=== PATIENT | female | born 1985 | race Two or more races ===

== ENCOUNTER 2021-04-08 10:42 | Day surgery (SDC) | payer MEDICAID ==
[~2021-04-08] VITALS: Ht 165.1 cm; Wt 76.7 kg
[2021-04-08 11:32] LABS: MICROSCOPIC NOT IND
[2021-04-08 11:36] LABS: ALANINE AMINOTRANSFERASE 26 U/L (12-78); ALBUMIN 3.6 g/dL (3.4-5.0); CALCIUM 8.1 mg/dL (8.5-10.1); CHLORIDE 110 mmol/L (98-107); CREATININE 0.61 mg/dL (0.55-1.02)
[2021-04-08 11:40] LABS: ALKALINE PHOSPHATASE 68 U/L (45-117); BILIRUBIN,TOTAL 0.8 mg/dL (0.2-1.0); TOTAL PROTEIN 7.2 g/dL (6.4-8.2)
[2021-04-08 11:44] LABS: ANION GAP 4 mmol/L (5-15)
[2021-04-08 11:45] LABS: BASOPHILS % (AUTO) 1 % (0-1); EOSINOPHILS % (AUTO) 1 % (1-7); LYMPHOCYTES % (AUTO) 43 % (22-44); MEAN CORPUSCULAR HEMOGLOBIN 30.2 pg (27.0-34.8); MEAN CORPUSCULAR HGB CONC 34.7 g/dL (32.4-35.8); MEAN PLATELET VOLUME 9.4 fL (7.4-10.4); MONOCYTES % (AUTO) 5 % (2-9); NEUTROPHILS % (AUTO) 51 % (42-75); PLATELET COUNT 257 x10^3/uL (130-400); RED BLOOD COUNT 4.64 x10^6/uL (3.82-5.3); RED CELL DISTRIBUTION WIDTH 13.2 % (9.6-15.2)
[2021-04-08] MEDS: SODIUM CHLORIDE FLUSH 10ML SYR IVF ONE (13:00)
[2021-04-08] MEDS ORDERED: SODIUM CHLORIDE FLUSH 10ML SYR IVF PRN (13:30)
[2021-04-08] MEDS: CEFOTETAN PMX 1GM/50ML 50 ML IVPB ONE (13:39)
[2021-04-08] MEDS: SODIUM CHLORIDE 0.9% 1,000 ML IV ONE (13:42)
[2021-04-08] MEDS ORDERED: BUPIVACAINE/PF 0.5% ONE (14:03)
[2021-04-08] MEDS ORDERED: EPINEPHRINE 1 MG/ML, 1ML ONE (14:03)
[2021-04-08] MEDS: BUPIVACAINE/PF-EPI 0.5% 1:200K INFIL ONE (14:35)
[2021-04-08] MEDS ORDERED: HYDR-2214 PO (14:53)
[2021-04-08] MEDS ORDERED: KETOROLAC 30 MG/1 ML IV PRN (15:00)
[2021-04-08] MEDS ORDERED: hydrALAzine 20 MG/ML, 1ML IV PRN (15:00)
[2021-04-08] MEDS ORDERED: LABETALOL 5MG/ML, 20ML IV PRN (15:00)
[2021-04-08] MEDS ORDERED: OXYcodone 5 MG/5 ML ORAL.SOL UDC PO PRN (15:00)
[2021-04-08] MEDS ORDERED: ONDANSETRON 2MG/ML, 2ML IVPush PRN (15:00)
[2021-04-08] MEDS ORDERED: PROMETHAZINE 25 MG/ML, 1ML IV PRN (15:00)
[2021-04-08] MEDS ORDERED: DIAZEPAM 5 MG/ML, 2ML IV PRN ×2 (15:00)
[2021-04-08] MEDS ORDERED: FENTANYL PF 100 MCG/2ML IV PRN (15:00)
[2021-04-08] MEDS ORDERED: HYDROmorphone 1 MG/ML, 1ML INJ IV PRN (15:00)
[2021-04-08] MEDS ORDERED: METOCLOPRAMIDE 5 MG/ML, 2ML IV PRN (15:00)
[2021-04-08] MEDS ORDERED: MEPERIDINE/PF 25MG/0.5ML IVPush PRN (15:00)
[2021-04-08] MEDS ORDERED: ALBUTEROL SULFATE 2.5 MG/3 ML NPPB PRN (15:00)
[2021-04-08] MEDS ORDERED: FENTANYL PF 250 MCG/5ML ONE (15:10)
[2021-04-08 16:11] VITALS: BP 104/68
== END 2021-04-08 18:08 | disposition home or self-care (01) ==
LOC: EDSTATUS 11:40 → ED 13:14 → UNDOADMIN 13:25 → EDIP 13:25 → OUT 13:25 → 4NE 16:10 → EDIP 16:10 → OUT 18:08 → UNDODISIN 18:30
PROVIDERS: ATTEND Emergency Medicine
DX: K35.80 Unspecified acute appendicitis (principal); O99.611 Diseases of the digestive system complicating pregnancy, first trimester; Z3A.01 Less than 8 weeks gestation of pregnancy
CPT/HCPCS: 36415; 44970; 76801; 80053; 81003; 84702; 85025; 87040; 87635; 88304; 96374; 99285; C1729; J0171; J3010; J7030; G0378